=== PATIENT | female | born 1955 | race Caucasian/White ===

== ENCOUNTER 2020-10-12 13:24 | Inpatient (IN) | payer OTHER ==
[~2020-10-12] VITALS: Ht 167.6 cm; Wt 88.5 kg
[2020-10-12] VITALS (7 sets, daily range): BP systolic 111–147; BP diastolic 61–87
[~2020-10-12 13:24] MED LIST: MOTRIN800 MG PO
[2020-10-12 14:21] LABS: HEMATOCRIT 44.4 % (37.0-47.0); MEAN CELL VOLUME 90.2 fl (81.0-99.0); MEAN CORPUSCULAR HGB 28.7 pg (27.0-31.0); MEAN CORPUSCULAR HGB CONC 31.8 g/dl (33.0-37.0); MEAN PLATELET VOLUME 10.7 fl (9.6-12.3); PLATELET COUNT AUTOMATED 352 10*3/uL (130-400); RED BLOOD COUNT 4.92 10*6/uL (4.10-5.10); RED CELL DISTRI WIDTH 13.8 % (0-14.5); WHITE BLOOD COUNT 21.7 10*3/uL (4.8-10.8)
[2020-10-12 14:39] LABS: ALKALINE PHOSPHATASE 83 U/L (45-117); BUN 41 mg/dl (7-24); CHLORIDE 98 mmol/L (98-107); CREATININE 1.89 mg/dL (0.55-1.02); LIPASE 102 U/L (73-393); POTASSIUM 3.8 mmol/L (3.5-5.1); SGOT/AST 19 IU/L (3-35); SGPT/ALT 25 U/L (12-78); SODIUM 139 mmol/L (136-145); TOTAL PROTEIN 8.5 gm/dL (6.4-8.2)
[2020-10-12 14:41] LABS: BURR CELLS FEW; OVALOCYTES FEW; PLATELET SUFFICIENCY NORMAL (NORMAL); TOTAL CELLS COUNTED 100 #CELLS
[2020-10-12 14:42] LABS: ACT PARTIAL THROMBO TIME 21.9 SECONDS (20.0-32.1)
[2020-10-12 14:43] LABS: TROPONIN I < 0.015 ng/ml (<0.045)
[2020-10-12 16:20] LABS: BILIRUBIN Negative (Negative); BLOOD 1+ (Negative); CLARITY Clear (Clear); COLOR Yellow (Yellow); GLUCOSE 3+ (Negative); KETONE 2+ (Negative); LEUKO ESTERASE Negative (Negative); NITRITE Negative (Negative); SPECIFIC GRAVITY >= 1.030 (1.001-1.030); UROBILINOGEN 0.2 E.U./dl (0.0-1.0)
[2020-10-12 16:32] LABS: BACTERIA 1+
[2020-10-12 18:38] LABS: CREATININE 1.7 mg/dL (0.55-1.02); POTASSIUM 3.7 mmol/L (3.5-5.1)
[2020-10-12 22:38] LABS: CREATININE 1.58 mg/dL (0.55-1.02); POTASSIUM 3.8 mmol/L (3.5-5.1)
[2020-10-13] VITALS (11 sets, daily range): BP systolic 128–153; BP diastolic 70–95
[2020-10-13 02:01] LABS: CREATININE 1.52 mg/dL (0.55-1.02); POTASSIUM 3.5 mmol/L (3.5-5.1)
[2020-10-13 06:34] LABS: BASO % 0.2 % (0.0-1.0); HEMATOCRIT 37.7 % (37.0-47.0); LYMPH # 1.2 10*3/uL (1.3-4.4); LYMPH % 6.4 % (27.0-41.0); MEAN CELL VOLUME 88.3 fl (81.0-99.0); MEAN CORPUSCULAR HGB 28.3 pg (27.0-31.0); MEAN CORPUSCULAR HGB CONC 32.1 g/dl (33.0-37.0); MEAN PLATELET VOLUME 10.6 fl (9.6-12.3); MONO # 1.4 10*3/uL (0.1-1.0); MONO % 7.1 % (3.0-9.0); NEUT # 16.4 10*3/uL (2.3-7.9); NEUT % 85.5 % (47.0-73.0); PLATELET COUNT AUTOMATED 268 10*3/uL (130-400); RED BLOOD COUNT 4.27 10*6/uL (4.10-5.10); RED CELL DISTRI WIDTH 14.1 % (0-14.5); WHITE BLOOD COUNT 19.2 10*3/uL (4.8-10.8)
[2020-10-13 06:54] LABS: CREATININE 1.38 mg/dL (0.55-1.02); POTASSIUM 3.7 mmol/L (3.5-5.1)
[2020-10-13 07:06] LABS: FREE T4 1.19 ng/dl (0.76-1.46); THYROID STIM HORMONE (HS) 0.793 uIU/ml (0.358-4.75)
[2020-10-13 12:40] LABS: CREATININE 1.38 mg/dL (0.55-1.02); POTASSIUM 3.7 mmol/L (3.5-5.1)
[2020-10-13 18:57] LABS: CREATININE 1.3 mg/dL (0.55-1.02)
[2020-10-13 19:04] LABS: POTASSIUM 5.1 mmol/L (3.5-5.1)
[2020-10-13 22:48] LABS: CREATININE 1.18 mg/dL (0.55-1.02)
[2020-10-13 22:57] LABS: POTASSIUM 3.5 mmol/L (3.5-5.1)
[2020-10-14] VITALS (10 sets, daily range): BP systolic 134–197; BP diastolic 63–100
[2020-10-14 05:38] LABS: BUN 29 mg/dl (7-24); CHLORIDE 105 mmol/L (98-107); CREATININE 1.04 mg/dL (0.55-1.02); POTASSIUM 3.3 mmol/L (3.5-5.1); SODIUM 136 mmol/L (136-145)
[2020-10-14 05:58] LABS: BASO % 0.2 % (0.0-1.0); EOS # 0.1 10*3/uL (0.0-0.4); EOS % 0.4 % (1.0-4.0); HEMATOCRIT 35.1 % (37.0-47.0); LYMPH # 2.2 10*3/uL (1.3-4.4); LYMPH % 13.8 % (27.0-41.0); MEAN CELL VOLUME 88.4 fl (81.0-99.0); MEAN CORPUSCULAR HGB 28.2 pg (27.0-31.0); MEAN CORPUSCULAR HGB CONC 31.9 g/dl (33.0-37.0); MEAN PLATELET VOLUME 10.4 fl (9.6-12.3); MONO # 1.3 10*3/uL (0.1-1.0); MONO % 8.3 % (3.0-9.0); NEUT # 12.2 10*3/uL (2.3-7.9); NEUT % 76.6 % (47.0-73.0); PLATELET COUNT AUTOMATED 225 10*3/uL (130-400); RED BLOOD COUNT 3.97 10*6/uL (4.10-5.10); RED CELL DISTRI WIDTH 13.7 % (0-14.5); WHITE BLOOD COUNT 15.9 10*3/uL (4.8-10.8)
[2020-10-14] MEDS ORDERED: ZOCOR80 MG PO (21:52)
[2020-10-14] MEDS ORDERED: METFORMIN HCL500 M2 PO (21:53)
[2020-10-14] MEDS ORDERED: PRINIVIL20 M1 PO (21:53)
[2020-10-14] MEDS ORDERED: ASPIRIN81 M1 PO (21:54)
[2020-10-14] MEDS ORDERED: LEXAPRO10 MG PO (21:54)
[2020-10-14] MEDS ORDERED: GLYBURIDE5 MG PO (21:55)
[2020-10-14] MEDS ORDERED: LOPRESSOR25 MG PO (21:56)
[2020-10-14] MEDS ORDERED: VITAMIN D325 MCG PO (21:58)
[2020-10-15] VITALS: BP 165/85
[2020-10-15 03:48] VITALS: BP 179/85
[2020-10-15 06:07] LABS: BUN 20 mg/dl (7-24); CHLORIDE 103 mmol/L (98-107); CREATININE 0.91 mg/dL (0.55-1.02); SODIUM 137 mmol/L (136-145)
[2020-10-15 07:57] VITALS: BP 160/80
[2020-10-15 12:00] VITALS: BP 157/86
[2020-10-15] MEDS ORDERED: GLUCTESTSTRIP DEVI (12:14)
[2020-10-15] MEDS ORDERED: LANTUS SOL100 UNIT/1 SC (12:14)
[2020-10-15] MEDS ORDERED: TEST STRIPS1 EACH MC (12:14)
[2020-10-15] MEDS ORDERED: BD ULTRA-FINE1 EAC3 MC (12:14)
[2020-10-15] MEDS ORDERED: HUMALOG100 UNIT/1 SC (12:14)
== END 2020-10-15 13:39 | disposition home health service (06) | DRG 342 ==
LOC: ED 13:24 → EDHOLD 17:13 → 4E 17:13 → EDHOLD 10-13 10:45 → 4E 10-14 19:12
PROVIDERS: Emergency Medicine; Internal Medicine; Student in an Organized Health Care Education/Training Program; ADMIT Student in an Organized Health Care Education/Training Program; ATTEND Student in an Organized Health Care Education/Training Program
PROC: 0RSJXZZ Reposition Right Shoulder Joint, External Approach (ICD-10-PCS; principal; 2020-10-12)
DX: S43.004A Unspecified dislocation of right shoulder joint, initial encounter (principal); M62.82 Rhabdomyolysis; N17.0 Acute kidney failure with tubular necrosis; E11.10 Type 2 diabetes mellitus with ketoacidosis without coma; R65.10 Systemic inflammatory response syndrome (SIRS) of non-infectious origin without acute organ dysfunction; E83.41 Hypermagnesemia; I10 Essential (primary) hypertension; K21.9 Gastro-esophageal reflux disease without esophagitis; E66.9 Obesity, unspecified; E87.6 Hypokalemia; E87.2 Acidosis; Z20.822 Contact with and (suspected) exposure to COVID-19; W01.0XXA Fall on same level from slipping, tripping and stumbling without subsequent striking against object, initial encounter; E86.0 Dehydration; Y93.89 Activity, other specified; Y99.8 Other external cause status; Y92.098 Other place in other non-institutional residence as the place of occurrence of the external cause; Z91.040 Latex allergy status; Z82.49 Family history of ischemic heart disease and other diseases of the circulatory system; Z68.31 Body mass index [BMI] 31.0-31.9, adult

== ENCOUNTER 2020-11-03 14:05 | Emergency (ER) | payer OTHER ==
[~2020-11-03] VITALS: Ht 160 cm; Wt 89.9 kg
[~2020-11-03 14:05] MED LIST changes: +ASPIRIN81 M1 PO; +BD ULTRA-FINE1 EAC3 MC; +GLUCTESTSTRIP DEVI; +GLYBURIDE5 MG PO; +HUMALOG100 UNIT/1 SC; +LANTUS SOL100 UNIT/1 SC; +LEXAPRO10 MG PO; +LOPRESSOR25 MG PO; +METFORMIN HCL500 M2 PO; +PRINIVIL20 M1 PO; +TEST STRIPS1 EACH MC; +VITAMIN D325 MCG PO; +ZOCOR80 MG PO
[2020-11-03 14:32] LABS: BASO % 0.5 % (0.0-1.0); EOS # 0.3 10*3/uL (0.0-0.4); EOS % 4.2 % (1.0-4.0); HEMATOCRIT 32.6 % (37.0-47.0); LYMPH # 1.4 10*3/uL (1.3-4.4); LYMPH % 20.5 % (27.0-41.0); MEAN CELL VOLUME 89.1 fl (81.0-99.0); MEAN CORPUSCULAR HGB 28.1 pg (27.0-31.0); MEAN CORPUSCULAR HGB CONC 31.6 g/dl (33.0-37.0); MEAN PLATELET VOLUME 9.4 fl (9.6-12.3); MONO # 0.5 10*3/uL (0.1-1.0); MONO % 7.8 % (3.0-9.0); NEUT # 4.4 10*3/uL (2.3-7.9); NEUT % 66.8 % (47.0-73.0); PLATELET COUNT AUTOMATED 282 10*3/uL (130-400); RED BLOOD COUNT 3.66 10*6/uL (4.10-5.10); RED CELL DISTRI WIDTH 13.2 % (0-14.5); WHITE BLOOD COUNT 6.6 10*3/uL (4.8-10.8)
[2020-11-03 14:48] LABS: ALBUMIN 2.6 gm/dl (3.1-4.5); CREATININE 1.24 mg/dL (0.55-1.02); POTASSIUM 2.9 mmol/L (3.5-5.1); TOTAL PROTEIN 6.9 gm/dL (6.4-8.2)
== END 2020-11-03 19:04 | disposition home or self-care (01) ==
LOC: ED 14:05
PROVIDERS: Physician Assistant
DX: E11.65 Type 2 diabetes mellitus with hyperglycemia (principal); E87.6 Hypokalemia; Z79.4 Long term (current) use of insulin; Z79.899 Other long term (current) drug therapy; Z79.82 Long term (current) use of aspirin; Z98.890 Other specified postprocedural states

== ENCOUNTER 2020-12-09 08:40 | Emergency (ER) | payer OTHER ==
[~2020-12-09] VITALS: Ht 162.5 cm; Wt 84.8 kg
== END 2020-12-09 09:21 | disposition home or self-care (01) ==
LOC: ED 08:40
DX: S40.011A Contusion of right shoulder, initial encounter (principal); M25.511 Pain in right shoulder; I10 Essential (primary) hypertension; K21.9 Gastro-esophageal reflux disease without esophagitis; E11.9 Type 2 diabetes mellitus without complications; Z79.4 Long term (current) use of insulin; Z79.899 Other long term (current) drug therapy; Z79.82 Long term (current) use of aspirin; Z98.890 Other specified postprocedural states; X58.XXXA Exposure to other specified factors, initial encounter; Y93.89 Activity, other specified; Y92.89 Other specified places as the place of occurrence of the external cause; Y99.8 Other external cause status

== ENCOUNTER → 2021-01-21 | Outpatient (CLI) | payer OTHER ==
[2021-01-21 10:35] LABS: BILIRUBIN Negative (Negative); BLOOD Trace-Lysed (Negative); CLARITY Turbid (Clear); COLOR Yellow (Yellow); GLUCOSE 3+ (Negative); KETONE Trace (Negative); LEUKO ESTERASE Trace (Negative); NITRITE Negative (Negative); SPECIFIC GRAVITY 1.025 (1.001-1.030)
[2021-01-21 10:36] LABS: ALBUMIN 3.7 gm/dl (3.1-4.5); ALKALINE PHOSPHATASE 64 U/L (45-117); BUN 27 mg/dl (7-24); CHLORIDE 110 mmol/L (98-107); CHOLESTEROL 139 mg/dL (<200); CREATININE 1.87 mg/dL (0.55-1.02); LDL CHOLESTEROL 61 mg/dL (9-159); SGOT/AST 9 IU/L (3-35); SGPT/ALT 12 U/L (12-78); SODIUM 142 mmol/L (136-145); TOTAL PROTEIN 7.7 gm/dL (6.4-8.2); TRIGLYCERIDES 158 mg/dl (<150)
[2021-01-21 10:59] LABS: BACTERIA 3+; COARSE GRANULAR CAST 31-40
== END | disposition home or self-care (01) ==
LOC: LAB 09:44
PROVIDERS: ATTEND Internal Medicine
DX: E11.65 Type 2 diabetes mellitus with hyperglycemia (principal); E55.9 Vitamin D deficiency, unspecified; E78.5 Hyperlipidemia, unspecified

== ENCOUNTER → 2021-02-01 | Outpatient (CLI) | payer OTHER | END | disposition home or self-care (01) | LOC: MRI 01-02 11:00 | PROVIDERS: ATTEND Orthopaedic Surgery | DX: S43.081A Other subluxation of right shoulder joint, initial encounter (principal); M75.101 Unspecified rotator cuff tear or rupture of right shoulder, not specified as traumatic; S46.911A Strain of unspecified muscle, fascia and tendon at shoulder and upper arm level, right arm, initial encounter; X58.XXXA Exposure to other specified factors, initial encounter; Y93.89 Activity, other specified; Y92.89 Other specified places as the place of occurrence of the external cause; Y99.8 Other external cause status ==

== ENCOUNTER → 2021-02-25 | Outpatient (CLI) | payer OTHER | END | disposition home or self-care (01) | LOC: RAD 13:20 | PROVIDERS: ATTEND Orthopaedic Surgery | DX: S46.022D Laceration of muscle(s) and tendon(s) of the rotator cuff of left shoulder, subsequent encounter (principal); N95.0 Postmenopausal bleeding; X58.XXXD Exposure to other specified factors, subsequent encounter ==

== ENCOUNTER → 2021-03-28 | Day surgery (SDC) | payer OTHER ==
[2021-03-25 15:19] LABS: CREATININE 1.86 mg/dL (0.55-1.02); POTASSIUM 4.3 mmol/L (3.5-5.1)
[~2021-03-28] VITALS: Ht 162.5 cm; Wt 78.5 kg
[~2021-03-28] MED LIST changes: +CRESTOR40 M1 PO
[2021-03-28 08:30] VITALS: BP 119/64
[2021-03-28 10:55] VITALS: BP 105/62
[2021-03-28 11:07] VITALS: BP 118/76
[2021-03-28 11:22] VITALS: BP 123/72
== END | disposition home or self-care (01) ==
LOC: SDC 03-25 12:30
PROVIDERS: ATTEND Orthopaedic Surgery
DX: G56.03 Carpal tunnel syndrome, bilateral upper limbs (principal); G62.9 Polyneuropathy, unspecified; M85.859 Other specified disorders of bone density and structure, unspecified thigh; I10 Essential (primary) hypertension; E11.9 Type 2 diabetes mellitus without complications; E78.00 Pure hypercholesterolemia, unspecified; Z86.73 Personal history of transient ischemic attack (TIA), and cerebral infarction without residual deficits; Z79.899 Other long term (current) drug therapy; Z20.822 Contact with and (suspected) exposure to COVID-19

== ENCOUNTER → 2021-07-30 | Day surgery (SDC) | payer OTHER ==
[2021-07-26 13:32] LABS: BASO % 0.5 % (0.0-1.0); EOS # 0.4 10*3/uL (0.0-0.4); EOS % 4.8 % (1.0-4.0); HEMATOCRIT 33.3 % (37.0-47.0); LYMPH # 1.6 10*3/uL (1.3-4.4); LYMPH % 22.4 % (27.0-41.0); MEAN CELL VOLUME 88.3 fl (81.0-99.0); MEAN CORPUSCULAR HGB 28.6 pg (27.0-31.0); MEAN CORPUSCULAR HGB CONC 32.4 g/dl (33.0-37.0); MEAN PLATELET VOLUME 9.7 fl (9.6-12.3); MONO # 0.5 10*3/uL (0.1-1.0); MONO % 6.6 % (3.0-9.0); NEUT # 4.8 10*3/uL (2.3-7.9); NEUT % 65.4 % (47.0-73.0); PLATELET COUNT AUTOMATED 219 10*3/uL (130-400); RED BLOOD COUNT 3.77 10*6/uL (4.10-5.10); WHITE BLOOD COUNT 7.3 10*3/uL (4.8-10.8)
[2021-07-26 14:02] LABS: CREATININE 1.72 mg/dL (0.55-1.02); POTASSIUM 4.3 mmol/L (3.5-5.1)
[2021-07-26 15:44] LABS: BILIRUBIN Negative (Negative); BLOOD Negative (Negative); CLARITY Clear (Clear); COLOR Yellow (Yellow); GLUCOSE 3+ (Negative); KETONE Negative (Negative); LEUKO ESTERASE Negative (Negative); NITRITE Negative (Negative); SPECIFIC GRAVITY >= 1.030 (1.001-1.030); UROBILINOGEN 0.2 E.U./dl (0.0-1.0)
[2021-07-26 16:09] LABS: BACTERIA 2+; MUCOUS TRACE; RBC 0-2 rbc/hpf (0-2)
[~2021-07-30] VITALS: Ht 165.1 cm; Wt 81.6 kg
[2021-07-30 10:10] VITALS: BP 137/83
== END | disposition home or self-care (01) ==
LOC: SDC 07-26 12:30
PROVIDERS: ATTEND Orthopaedic Surgery
DX: S46.011A Strain of muscle(s) and tendon(s) of the rotator cuff of right shoulder, initial encounter (principal); I10 Essential (primary) hypertension; E11.9 Type 2 diabetes mellitus without complications; E78.00 Pure hypercholesterolemia, unspecified; Z86.73 Personal history of transient ischemic attack (TIA), and cerebral infarction without residual deficits; K21.9 Gastro-esophageal reflux disease without esophagitis; Z20.822 Contact with and (suspected) exposure to COVID-19; X58.XXXA Exposure to other specified factors, initial encounter; Y93.89 Activity, other specified; Y92.89 Other specified places as the place of occurrence of the external cause; Y99.8 Other external cause status; Z53.8 Procedure and treatment not carried out for other reasons

== ENCOUNTER → 2021-10-28 | Outpatient (CLI) | payer OTHER ==
[~2021-10-28] MED LIST changes: +GLUCOTROL10 MG PO; +JARDIANCE10 MG PO; +PERCOCET 5-3251 EACH PO
== END | disposition home or self-care (01) ==
LOC: ORTHO 03:38
PROVIDERS: ATTEND Orthopaedic Surgery
DX: Z09 Encounter for follow-up examination after completed treatment for conditions other than malignant neoplasm (principal); Z96.611 Presence of right artificial shoulder joint

== ENCOUNTER 2022-07-16 13:25 | Emergency (ER) | payer OTHER ==
[~2022-07-16] VITALS: Wt 93.0 kg
[2022-07-16 15:05] LABS: ABG BASE EXCESS -16.8 mmol/L (-2.0-2.0); ARTERIAL BLOOD GAS PO2 61.3 (80-90)
[2022-07-16 15:07] LABS: ARTERIAL BLOOD GAS PH 7.03 (7.35-7.45)
[2022-07-16 15:23] LABS: HEMATOCRIT 39.1 % (37.0-47.0); MEAN CELL VOLUME 89.1 fl (81.0-99.0); MEAN CORPUSCULAR HGB 27.8 pg (27.0-31.0); MEAN CORPUSCULAR HGB CONC 31.2 g/dl (33.0-37.0); MEAN PLATELET VOLUME 10.6 fl (9.6-12.3); PLATELET COUNT AUTOMATED 179 10*3/uL (130-400); RED BLOOD COUNT 4.39 10*6/uL (4.10-5.10); RED CELL DISTRI WIDTH 12.7 % (0-14.5); WHITE BLOOD COUNT 21.1 10*3/uL (4.8-10.8)
[2022-07-16 15:33] LABS: VENOUS PH 7.032 (7.37-7.45)
[2022-07-16 15:43] LABS: MANUAL DIFF REFLEX YES
[2022-07-16 15:47] LABS: PLATELET SUFFICIENCY NORMAL (NORMAL); TOTAL CELLS COUNTED 100 #CELLS
[2022-07-16 16:02] LABS: POTASSIUM 2.9 mmol/L (3.4-5.1); TOTAL PROTEIN 5.8 gm/dL (6.0-8.0)
[2022-07-16 20:58] LABS: BILIRUBIN Negative (Negative); BLOOD Negative (Negative); CLARITY Cloudy (Clear); COLOR Yellow (Yellow); GLUCOSE 3+ (Negative); KETONE Trace (Negative); LEUKO ESTERASE Negative (Negative); NITRITE Negative (Negative); SPECIFIC GRAVITY >= 1.030 (1.001-1.030)
[2022-07-16 21:18] LABS: BACTERIA 1+; WBC 0-2 wbc/hpf (0-5)
[2022-07-16 21:19] LABS: MUCOUS 1+
[2022-07-16 21:26] LABS: INTERNATIONAL NORM RATIO 1.2 (2.0-3.5)
== END 2022-07-16 21:55 | disposition short-term general hospital (02) ==
LOC: ED 13:25
PROVIDERS: Emergency Medicine; Internal Medicine
DX: A41.9 Sepsis, unspecified organism (principal); Z20.822 Contact with and (suspected) exposure to COVID-19; I21.4 Non-ST elevation (NSTEMI) myocardial infarction; I26.99 Other pulmonary embolism without acute cor pulmonale; R41.82 Altered mental status, unspecified; E10.10 Type 1 diabetes mellitus with ketoacidosis without coma; R00.0 Tachycardia, unspecified; J96.01 Acute respiratory failure with hypoxia; Z79.899 Other long term (current) drug therapy; Z79.82 Long term (current) use of aspirin